=== PATIENT | male | born 1940 | race Hispanic/Latino ===

== ENCOUNTER → 2021-01-01 | Outpatient (CLI) | payer MEDICARE ==
[~2021-01-01] MED LIST: ASPI81TA40 PO; ATOR40TA69 PO; GLIP2.5T17 PO; LISI-809 PO; MECL-226 PO; METF-446 PO; METO-408 PO; METO5TAB2 PO; NITR0.4T50 SL; PIOG15TA66 PO; SITA100T12 PO; TAMS-1 PO
== END | disposition home or self-care (01) ==
LOC: SHCH 12:31
PROVIDERS: ATTEND Internal Medicine Cardiovascular Disease
DX: I10 Essential (primary) hypertension (principal)
CPT/HCPCS: 93306; 93356